=== PATIENT | female | born 1960 | race African-American/Black ===

== ENCOUNTER 2016-12-06 07:12 | Inpatient (IN) | payer MEDICARE, MEDICAID ==
[~2016-12-06] VITALS: Ht 163.8 cm; Wt 86.0 kg
[2016-12-06] VITALS (13 sets, daily range): BP systolic 150–261; BP diastolic 64–121; PULSE 70–84; RESP 16–35; TEMP 98.6–100; O2SAT 20–100
[~2016-12-06 07:12] MED LIST: CORT1SOL RIGHT EAR
[2016-12-06] MEDS ORDERED: QUET5TAB PO (07:38)
[2016-12-06] MEDS ORDERED: METO100T PO (07:38)
[2016-12-06] MEDS ORDERED: VERA120T3 PO (07:38)
[2016-12-06] MEDS ORDERED: ATOR40TA16 PO (07:38)
[2016-12-06] MEDS ORDERED: CITA20TA4 PO (07:38)
[2016-12-06] MEDS ORDERED: DONE5TAB7 PO (07:38)
[2016-12-06] MEDS ORDERED: CLON0.3T PO (07:38)
--- NOTE | 2016-12-06 07:39 | PD ---
HPI Chief Complaint: Respiratory Distress Time Seen by Provider: 07:27 Travel History International Travel<30 days: No Contact w/Intl Traveler<30days: No Traveled to known affect area: No History of Present Illness HPI 56-year-old female complains of chest pain and shortness of breath. Patient states that she woke up around 4:00 this morning was subsequently chest pressure and shortness of breath. Patient denies any chest pain radiation. Patient denies palpitation nausea diaphoresis. Patient states that the chest discomfort resolved completely. Patient states that she has some mild persistent short of breath . Patient denies any headache. Patient denies any coughing congestion. Patient denies abdominal pain. Patient denies any nausea vomiting diarrhea. Patient has history hypertension, diabetes, hyperlipidemia. Patient is a nonsmoker. Patient denies family history heart disease. Patient states that she had stress test done about a year ago at [facility] and it was normal. PFSH Past Medical History Autoimmune Disease: Yes (lupus) Anxiety: Yes Depression: Yes High Cholesterol: Yes Coronary Artery Disease: Yes Diabetes: Yes Patient Takes Glucophage: No Hypertension: Yes ?: Not Menopausal: Yes Past Surgical History Section: Yes Social History Alcohol Use: No Tobacco Use: No Substance Use: Yes (marijuana) Allergies-Medications (Allergen,Severity, Reaction): Coded Allergies: lorazepam (Unverified Allergy, Intermediate, 12/04/16) Reported Meds & Prescriptions Reported Meds & Active Scripts Active Reported Quetiapine (Quetiapine Fumarate) 50 Mg Tab 50 Mg PO HS Metoprolol Tartrate 100 Mg Tab 100 Mg PO BID Clonidine (Clonidine HCl) 0.3 Mg Tab 0.3 Mg PO TID Donepezil 5 Mg Tab 5 Mg PO HS Verapamil (Verapamil HCl) 120 Mg Tab 120 Mg PO BID Citalopram (Citalopram Hydrobromide) 20 Mg Tab 20 Mg PO DAILY Atorvastatin (Atorvastatin Calcium) 40 Mg Tab 40 Mg PO HS Review of Systems General / Constitutional: No: Fever Eyes: No: Visual changes HENT: No: Headaches Cardiovascular: Positive: Chest Pain or Discomfort Respiratory: Positive: Shortness of Breath Gastrointestinal: No: Abdominal Pain Genitourinary: No: Dysuria Musculoskeletal: No: Pain Skin: No Rash Neurologic: No: Weakness Psychiatric: No: Depression Endocrine: No: Polydipsia Hematologic/Lymphatic: No: Easy Bruising Physical Exam Narrative GENERAL: Well-nourished, well-developed patient. SKIN: Focused skin assessment warm/dry. HEAD: Normocephalic. EYES: No scleral icterus. No injection or drainage. NECK: Supple, trachea midline. No JVD or lymphadenopathy. CARDIOVASCULAR: Regular rate and rhythm without murmurs, gallops, or rubs. RESPIRATORY: Breath sounds equal bilaterally. No accessory muscle use. GASTROINTESTINAL: Abdomen soft, non-tender, nondistended. Rectal exam Hemoccult negative. Patient has external hemorrhoid but no evidence of bleeding or thrombosis. MUSCULOSKELETAL: No cyanosis, or edema. BACK: Nontender without obvious deformity. No CVA tenderness. Neurologic exam normal. Data Data Last Documented VS Vital Signs Date Time Temp Pulse Resp B/P Pulse Ox O2 Delivery O2 Flow Rate FiO2 12/06/16 07:39 96 Room Air 12/06/16 07:14 98.6 72 16 235/119 Orders Electrocardiogram (12/06/16 07:32) Complete Blood Count With Diff (12/06/16 07:32) Comprehensive Metabolic Panel (12/06/16 07:32) Creatine Kinase (Cpk) (12/06/16 07:32) Troponin I (12/06/16 07:32) Prothrombin Time / Inr (Pt) (12/06/16 07:32) Act Partial Throm Time (Ptt) (12/06/16 07:32) Urinalysis - C+S If Indicated (12/06/16 07:32) Chest, Single Ap (12/06/16 07:32) Iv Access Insert/Monitor (12/06/16 07:32) Ecg Monitoring (12/06/16 07:32) Oximetry (12/06/16 07:32) CKMB (12/06/16 07:44) CKMB% (12/06/16 07:44) Urine Culture (12/06/16 08:44) Hydralazine Inj (Apresoline Inj) (12/06/16 10:45) Admit To Inpatient (12/06/16 ) Vital Signs (Adult) JONO.Q4H (12/06/16 10:41) Activity Bed Rest (12/06/16 10:41) Cloud Security Architect / Telemetry JONO.Q8H (12/06/16 10:41) Diet Npo (12/06/16 Lunch) Sodium Chloride 0.9% Flush (Ns Flush) (12/06/16 10:45) Sodium Chloride 0.9% Flush (Ns Flush) (12/06/16 10:45) Inpatient Certification (12/06/16 ) Labs Laboratory Tests Test 12/06/16 12/06/16 07:44 08:44 White Blood Count 5.9 TH/MM3 Red Blood Count 2.73 MIL/MM3 Hemoglobin 7.5 GM/DL Hematocrit 22.9 % Mean Corpuscular Volume 84.0 FL Mean Corpuscular Hemoglobin 27.3 PG Mean Corpuscular Hemoglobin 32.5 % Concent Red Cell Distribution Width 15.3 % Platelet Count 225 TH/MM3 Mean Platelet Volume 8.0 FL Neutrophils (%) (Auto) 75.5 % Lymphocytes (%) (Auto) 17.0 % Monocytes (%) (Auto) 6.2 % Eosinophils (%) (Auto) 0.5 % Basophils (%) (Auto) 0.8 % Neutrophils # (Auto) 4.5 TH/MM3 Lymphocytes # (Auto) 1.0 TH/MM3 Monocytes # (Auto) 0.4 TH/MM3 Eosinophils # (Auto) 0.0 TH/MM3 Basophils # (Auto) 0.0 TH/MM3 CBC Comment DIFF FINAL Differential Comment Prothrombin Time 10.7 SEC Prothromb Time International 1.0 RATIO Ratio Activated Partial 23.1 SEC Thromboplast Time Sodium Level 143 MEQ/L Potassium Level 3.8 MEQ/L Chloride Level 111 MEQ/L Carbon Dioxide Level 24.0 MEQ/L Anion Gap 8 MEQ/L Blood Urea Nitrogen 42 MG/DL Creatinine 3.20 MG/DL Estimat Glomerular Filtration 18 ML/MIN Rate Random Glucose 64 MG/DL Calcium Level 8.6 MG/DL Total Bilirubin 0.2 MG/DL Aspartate Amino Transf 70 U/L (AST/SGOT) Alanine Aminotransferase 102 U/L (ALT/SGPT) Alkaline Phosphatase 178 U/L Total Creatine Kinase 417 U/L Creatine Kinase MB 3.4 NG/ML Creatine Kinase MB % 0.8 % Troponin I 0.03 NG/ML Total Protein 7.8 GM/DL Albumin 3.0 GM/DL Urine Color LIGHT-YELLOW Urine Turbidity HAZY Urine pH 6.5 Urine Specific [place] 1.012 Urine Protein 300 mg/dL Urine Glucose (UA) NEG mg/dL Urine Ketones NEG mg/dL Urine Occult Blood SMALL Urine Nitrite NEG Urine Bilirubin NEG Urine Urobilinogen LESS THAN 2.0 MG/DL Urine Leukocyte Esterase SMALL Urine RBC 3 /hpf Urine WBC 19 /hpf Urine Squamous Epithelial 16 /hpf Cells Urine Amorphous Sediment RARE Urine Bacteria OCC /hpf Microscopic Urinalysis Comment CULTURE INDICATED MDM Medical Decision Making Medical Screen Exam Complete: Yes Emergency Medical Condition: Yes Interpretation(s) Last Impressions Chest X-Ray 12/06/16 0732 Signed Impressions: Service Date/Time: November 07:41 - CONCLUSION: Moderate cardiomegaly. Clear lungs. Ritcihe Gold Jr., MD 9:48 AM. CBC WBC 5.9. Hemoglobin 7.5 hematocrit 22.9. 75 neutrophil. BUN 42. Creatinine 3.20. AST 78. ALT 102. Alkaline phosphatase 178. Total CK 417 with normal MB fraction. Troponin normal. UA positive for WBC and bacteria. Differential Diagnosis Differential diagnosis including angina, OR, PE, pneumothorax. Narrative Course 56-year-old female with chest pain and shortness of breath. Patient's blood pressures elevated. Normal saline solution 70 cc an hour. Protonix 40 mg IV. Hydralazine tendon gram IV given. HemaPrompt Point of Care Internal Pos. & Neg. Controls: Passed Fecal Specimen Occult Blood: Negative Diagnosis Primary Impression: Chest pain Qualified Code: R07.9 - Chest pain, unspecified type Additional Impressions: Anemia Qualified Code: D64.9 - Anemia, unspecified type Transaminitis Delon Tello MD Dec 06, 2016 07:39
--- NOTE | 2016-12-06 08:02 | RADRPT ---
EXAM DATE/TIME: 12/06/2016 07:41 [facility] COMPARISON: No previous studies available for comparison. INDICATIONS : Chest pain. MEDICAL HISTORY : Hypertension. SURGICAL HISTORY : None. ENCOUNTER: Initial ACUITY: 1 day PAIN SCORE: 4/10 LOCATION: middle chest FINDINGS: A single view of the chest demonstrates the lungs to be symmetrically aerated without evidence of mas s, infiltrate or effusion. The heart is moderately enlarged without pulmonary vascular engorgement. Osseous structures are intact. CONCLUSION: Moderate cardiomegaly. Clear lungs. Ritchie Gold Jr., MD on December 06, 2016 at 8:00 Board Certified Radiologist. This report was verified electronically.
[2016-12-06 08:04] LABS: AUTOMATED NEUTROPHIL # 4.5 TH/MM3 (1.8-7.7); BASOPHIL % 0.8 % (0.0-2.0); EOSINOPHIL % 0.5 % (0.0-4.0); HEMATOCRIT 22.9 % (35.0-46.0); HEMO FLAGS DIFF FINAL; MEAN CORPUSCULAR HEMOGLOBIN 27.3 PG (27.0-34.0); MEAN CORPUSCULAR HGB CONC 32.5 % (32.0-36.0); MONO % 6.2 % (0.0-8.0); NEUT % 75.5 % (16.0-70.0); PLATELET COUNT 225 TH/MM3 (150-450); RED BLOOD COUNT 2.73 MIL/MM3 (4.00-5.30); RED CELL DISTRIBUTION WIDTH 15.3 % (11.6-17.2); WHITE BLOOD COUNT 5.9 TH/MM3 (4.0-11.0)
[2016-12-06 08:16] LABS: APTT (PATIENT) 23.1 SEC (24.3-30.1); PROTHROMBIN TIME - PATIENT 10.7 SEC (9.8-11.6)
[2016-12-06 08:23] LABS: ALT (GPT) 102 U/L (10-53); ANION GAP 8 MEQ/L (5-15); BLOOD UREA NITROGEN 42 MG/DL (7-18); CHLORIDE 111 MEQ/L (98-107); POTASSIUM 3.8 MEQ/L (3.5-5.1); SODIUM (NA) 143 MEQ/L (136-145)
[2016-12-06 08:28] LABS: ALKALINE PHOSPHATASE 178 U/L (45-117); AST (GOT) 70 U/L (15-37); CREATINE KINASE 417 U/L (26-192); GLOMERULAR FILTRATION RATE 18 ML/MIN (>89); TOTAL BILIRUBIN ADULT 0.2 MG/DL (0.2-1.0)
[2016-12-06 08:41] LABS: CKMB 3.4 NG/ML (0.5-3.6)
[2016-12-06 09:25] LABS: BACTERIA, URINE OCC /hpf; BLOOD, URINE SMALL (NEG); COMMENT (UR) CULTURE INDICATED; CULTURE IF INDICATED CULTURE INDICATED; GLUCOSE,URINE NEG (NEG); KETONE, URINE NEG (NEG); NITRITE,URINE NEG (NEG); PH, URINE 6.5 (5.0-8.5); SQUAMOUS EPITHELIAL CELL URINE 16 /hpf (0-5); URINE COLOR LIGHT-YELLOW (YELLW/STRAW)
[2016-12-06] MEDS ORDERED: PANTOPRAZOLE SODIUM 40 MG VIAL IV PUSH ONE (10:45)
[2016-12-06] MEDS ORDERED: SODIUM CHLORIDE 0.9% FLUSH 10 ML FLUSH IV FLUSH PRN (10:45)
[2016-12-06] MEDS ORDERED: hydrALAZINE HCL 20 MG/ML VIAL IV PUSH ONE ×2 (10:45→11:30)
[2016-12-06] MEDS: SODIUM CHLORIDE 0.9% FLUSH 10 ML FLUSH IV FLUSH SCH ×2 (10:57→21:08)
[2016-12-06] MEDS: SODIUM CHLOR 0.9% 1000 ML INJ 1,000 ML IV SCH (10:57)
[2016-12-06] MEDS ORDERED: LABETALOL HCL 100 MG/20 ML VIAL IV PUSH ONE (12:00)
[2016-12-06] MEDS ORDERED: SODIUM CHLOR 0.9% 1000 ML INJ 1,000 ML IV ONE (12:30)
[2016-12-06] MEDS ORDERED: LORazepam 2 MG/ML VIAL IV PUSH PRN (12:30)
--- NOTE | 2016-12-06 12:34 | HHI.HP ---
[facility] ANISHA Hart Admission Diagnosis chest pain. Anemia. Acute renal failure. Uncontrolled hypertensio Diagnoses: Chief Complaint: " i couldn't breath" Travel History International Travel<30 Days: No Contact w/Intl Traveler <30 Da: No Traveled to Known Affected Are: No History of Present Illness 56-year-old black female being admitted for chest pressure and shortness of breath along with anemia and presumably acute renal insufficiency. Appears very nervous during the history intake, becomes tearful midway. Patient states she was in her usual state of health until about 4:00 this morning when she woke up gasping for air secondary to chest pressure. Denies any bozena chest pain, says that she was able to calm herself down by the time she was driving to the ER, says the pressure had eased up. Says that by the time she had to the ER, her chest pressure was minimal. Denies this happening in the past. Denies any worsening or alleviating factors, came straight to the ER after waking up. Patient denies any hematochezia or melena, no nausea or vomiting, or lightheadedness. Does report new onset fatigue since about 1 month ago. Denies any abdominal pain. Reports the possibility of hitting menses, denies vaginal bleeding or any hematuria. 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 Says that she did have a screening colonoscopy some time in the last year and was told she had some polyps with stated; but denies any acute issues leading to the colonoscopy. When asking about her past medical history, the patient again becomes very tearful and nervous. When asked why she is getting upset, she says she doesn't know what's going on with her. When asked which physicians she sees especially for her mood disorders, she is unable to name them reliably. Review of Systems Except as stated in HPI: all other systems reviewed are Neg Past Family Social History Past Medical History diabetes, HTN, "lupus trait" Past Surgical History , screening colonoscopy Allergies: Coded Allergies: lorazepam (Unverified Allergy, Intermediate, 12/04/16) Family History no fam hx of CRC, sister did have ovarian CA Social History lives with partner, reports using THC, denies smoking or drinking ever Physical Exam Vital Signs Vital Signs Date Time Temp Pulse Resp B/P Pulse Ox O2 Delivery O2 Flow Rate FiO2 12/06/16 12:28 84 20 240/117 100 12/06/16 11:04 74 20 261/121 98 Room Air 12/06/16 07:39 96 Room Air 12/06/16 07:14 98.6 72 16 235/119 98 Physical Exam VS: Reviewed, very hypertensive GENERAL: Well-nourished female, very nervous, at times tearful SKIN: Warm and dry. EYES: Pupils equal and round. No scleral icterus. No injection or drainage. ENT: No nasal bleeding or discharge. Mucous membranes pink and moist. CARDIOVASCULAR: Regular rate and rhythm. no murmurs RESPIRATORY: No accessory muscle use. Clear to auscultation. Breath sounds equal bilaterally. GASTROINTESTINAL: Abdomen soft, non-tender, nondistended. Hepatic and splenic margins not palpable. MUSCULOSKELETAL: Extremities without clubbing, cyanosis, or edema. No obvious deformities. grossly intact ROM with 5/5 strength in upper and lower extremities proximally. Substernal chest wall is nontender to palpation with the patient experienced pressure NEUROLOGICAL: Awake and alert. No obvious cranial nerve deficits. No facial droop nor slurred speech noted. PSYCHIATRIC: Appropriate mood and affect; insight and judgment normal. Laboratory Laboratory Tests Test 12/06/16 12/06/16 07:44 08:44 White Blood Count 5.9 Red Blood Count 2.73 Hemoglobin 7.5 Hematocrit 22.9 Mean Corpuscular Volume 84.0 Mean Corpuscular Hemoglobin 27.3 Mean Corpuscular Hemoglobin 32.5 Concent Red Cell Distribution Width 15.3 Platelet Count 225 Mean Platelet Volume 8.0 Neutrophils (%) (Auto) 75.5 Lymphocytes (%) (Auto) 17.0 Monocytes (%) (Auto) 6.2 Eosinophils (%) (Auto) 0.5 Basophils (%) (Auto) 0.8 Neutrophils # (Auto) 4.5 Lymphocytes # (Auto) 1.0 Monocytes # (Auto) 0.4 Eosinophils # (Auto) 0.0 Basophils # (Auto) 0.0 CBC Comment DIFF FINAL Differential Comment Prothrombin Time 10.7 Prothromb Time International 1.0 Ratio Activated Partial 23.1 Thromboplast Time Sodium Level 143 Potassium Level 3.8 Chloride Level 111 Carbon Dioxide Level 24.0 Anion Gap 8 Blood Urea Nitrogen 42 Creatinine 3.20 Estimat Glomerular Filtration 18 Rate Random Glucose 64 Calcium Level 8.6 Total Bilirubin 0.2 Aspartate Amino Transf 70 (AST/SGOT) Alanine Aminotransferase 102 (ALT/SGPT) Alkaline Phosphatase 178 Total Creatine Kinase 417 Creatine Kinase MB 3.4 Creatine Kinase MB % 0.8 Troponin I 0.03 Total Protein 7.8 Albumin 3.0 Urine Color LIGHT-YELLOW Urine Turbidity HAZY Urine pH 6.5 Urine Specific [place] 1.012 Urine Protein 300 Urine Glucose (UA) NEG Urine Ketones NEG Urine Occult Blood SMALL Urine Nitrite NEG Urine Bilirubin NEG Urine Urobilinogen LESS THAN 2.0 Urine Leukocyte Esterase SMALL Urine RBC 3 Urine WBC 19 Urine Squamous Epithelial 16 Cells Urine Amorphous Sediment RARE Urine Bacteria OCC Microscopic Urinalysis Comment CULTURE INDICATED Date/Time Procedure Status Source Growth 12/06/16 08:44 Urine Culture Received Urine Clean Catch Pending Result Diagram: 12/06/1644 12/06/16 0744 Imaging Last 24 hours Impressions Chest X-Ray 12/06/16 0732 Signed Impressions: Service Date/Time: November 07:41 - CONCLUSION: Moderate cardiomegaly. Clear lungs. Ritchie Gold Jr., MD Assessment and Plan Problem List: (1) Transaminitis ICD Code: R74.0 Status: Acute (2) Renal insufficiency ICD Code: N28.9 Status: Acute (3) Anemia ICD Code: D64.9 Status: Acute (4) Shortness of breath ICD Code: R06.02 Status: Acute Assessment and Plan 56-year-old black female being admitted with shortness of breath and multiple lab abnormalities, clinically stable w/ exception of severe HTN upon admission. Poor historian. 1) shortness of breath/chest pressure - improved over time, wonder if this is secondary to obstructive sleep apnea compounded with anxiety, low suspicion for ACS. EKG unremarkable, we'll trend troponins although they may be elevated due to substantially impaired renal function. We'll obtain echocardiogram and monitor on telemetry. 2) hypertensive emergency vs urgency - unsure if kidney damage is acute or chronic, will treat with IV antihypertensives including cardene drip. . 2) normocytic anemia - stool occult negative ENZO, will repeat, consider GI consult. Obtaining iron ferritin and reticulocyte levels. We'll transfuse 1 unit of blood to see if this helps with her chest pressure issues, trend daily levels. 3) transaminitis - unclear etiology at this time, we'll trend and consider GI consult. 4) renal insufficiency - will treat for possibility of acute insult on chronic issue, possibly due to "lupus" 5) "lupus trait" - will consider rheum consult. ordering outside records. 6) mood disorders - will hold home meds for now. will consider psych consult to help with med management since this pt at the age of 56 is apparently taking donepezil and she isn't sure whose writing which meds. Physician Certification 2 Midnight Certification Type: Admission for Inpatient Services Order for Inpatient Services The services are ordered in accordance with Medicare regulations or non- Medicare payer requirements, as applicable. In the case of services not specified as inpatient-only, they are appropriately provided as inpatient services in accordance with the 2-midnight benchmark. Estimated LOS (days): 3 3 days is the estimated time the patient will need to remain in the hospital, assuming treatment plan goals are met and no additional complications. Post-Hospital Plan: Home Problem Qualifiers (1) Anemia: Qualified Code: D64.9 - Anemia, unspecified type Rogerio Haro MD Dec 06, 2016 12:34
[2016-12-06] MEDS ORDERED: niCARdipine INJ 25 MG in SODIUM CHLOR 0.9% 250 ML INJ 250 ML IV ONE (13:00)
[2016-12-06 13:47] LABS: RETIC % 2.6 % (0.4-3.0); REVIEW FLAG FINAL
[2016-12-06] MEDS ORDERED: VERAPAMIL HCL 120 MG TAB PO SCH (14:00)
[2016-12-06 14:01] LABS: FERRITIN 291 NG/ML (8-252)
[2016-12-06] MEDS: cloNIDine HCL 0.3 MG TAB PO SCH ×2 (14:01→17:40)
[2016-12-06] MEDS: METOPROLOL TARTRATE 100 MG TAB PO SCH ×2 (14:01→21:07)
--- NOTE | 2016-12-06 14:24 | PD.CONS ---
HPI History of Present Illness This is a 56 year old female with hx HTN who presented with c/o chest pressure and SOB. She was found to be anemic with hgb 7.5, stool occult negative. Denies tarry stool, red blood in stool, hematemesis, abd pain, weight loss. SHe had colonoscopy a year and a half ago in [place] with Dr Maloney, finding was polyps. Never had EGD. She admits hx anemia, was here 1-2 years ago and told she was anemic and received blood transfusion. Is tender in RUQ on exam and says she has noticed pain there before, on her last admission. Denies hx liver problems. (Breanne Barboza) PFSH Past Medical History diabetes, HTN, "lupus trait Past Surgical History , screening colonoscopy (Breanne Barboza) Coded Allergies: lorazepam (Unverified Allergy, Intermediate, 12/04/16) Family History no fam hx of CRC, sister did have ovarian CA Social History lives with partner, reports using marijuana regularly, denies smoking or drinking ever (Breanne Barboza) Review of Systems Constitutional: DENIES: Fever Eyes: DENIES: Blurred vision Ears, nose, mouth, throat: DENIES: Hearing loss Respiratory: DENIES: Hemoptysis Gastrointestinal: DENIES: Abdominal pain, Black stools, Bloody stools, Diarrhea , Nausea, Vomiting, Hematemesis Genitourinary: DENIES: Hematuria Musculoskeletal: DENIES: Joint Swelling Neurologic: COMPLAINS OF: Abnormal gait (ambulates with cane) Psychiatric: COMPLAINS OF: Anxiety (Breanne Barboza) GI Exam Vitals I&O Vital Signs Date Time Temp Pulse Resp B/P Pulse Ox O2 Delivery O2 Flow Rate FiO2 12/06/16 13:12 231/107 12/06/16 12:28 84 20 240/117 100 12/06/16 11:04 74 20 261/121 98 Room Air 12/06/16 07:39 96 Room Air 12/06/16 07:14 98.6 72 16 235/119 98 Imaging Last Impressions Chest X-Ray 12/06/16 0732 Signed Impressions: Service Date/Time: November 07:41 - CONCLUSION: Moderate cardiomegaly. Clear lungs. Ritchie Gold Jr., MD Laboratory Test 12/06/16 12/06/16 07:44 08:44 White Blood Count 5.9 TH/MM3 Red Blood Count 2.73 MIL/MM3 Hemoglobin 7.5 GM/DL Hematocrit 22.9 % Mean Corpuscular Volume 84.0 FL Mean Corpuscular Hemoglobin 27.3 PG Mean Corpuscular Hemoglobin 32.5 % Concent Red Cell Distribution Width 15.3 % Platelet Count 225 TH/MM3 Mean Platelet Volume 8.0 FL Neutrophils (%) (Auto) 75.5 % Lymphocytes (%) (Auto) 17.0 % Monocytes (%) (Auto) 6.2 % Eosinophils (%) (Auto) 0.5 % Basophils (%) (Auto) 0.8 % Neutrophils # (Auto) 4.5 TH/MM3 Lymphocytes # (Auto) 1.0 TH/MM3 Monocytes # (Auto) 0.4 TH/MM3 Eosinophils # (Auto) 0.0 TH/MM3 Basophils # (Auto) 0.0 TH/MM3 CBC Comment DIFF FINAL Differential Comment Reticulocyte Count 2.6 % Absolute Reticulocyte Count 70.0 MIL/L Prothrombin Time 10.7 SEC Prothromb Time International 1.0 RATIO Ratio Activated Partial 23.1 SEC Thromboplast Time Sodium Level 143 MEQ/L Potassium Level 3.8 MEQ/L Chloride Level 111 MEQ/L Carbon Dioxide Level 24.0 MEQ/L Anion Gap 8 MEQ/L Blood Urea Nitrogen 42 MG/DL Creatinine 3.20 MG/DL Estimat Glomerular Filtration 18 ML/MIN Rate Random Glucose 64 MG/DL Calcium Level 8.6 MG/DL Iron Level 37 MCG/DL Ferritin 291 NG/ML Total Bilirubin 0.2 MG/DL Aspartate Amino Transf 70 U/L (AST/SGOT) Alanine Aminotransferase 102 U/L (ALT/SGPT) Alkaline Phosphatase 178 U/L Total Creatine Kinase 417 U/L Creatine Kinase MB 3.4 NG/ML Creatine Kinase MB % 0.8 % Troponin I 0.03 NG/ML Total Protein 7.8 GM/DL Albumin 3.0 GM/DL Urine Color LIGHT-YELLOW Urine Turbidity HAZY Urine pH 6.5 Urine Specific [place] 1.012 Urine Protein 300 mg/dL Urine Glucose (UA) NEG mg/dL Urine Ketones NEG mg/dL Urine Occult Blood SMALL Urine Nitrite NEG Urine Bilirubin NEG Urine Urobilinogen LESS THAN 2.0 MG/DL Urine Leukocyte Esterase SMALL Urine RBC 3 /hpf Urine WBC 19 /hpf Urine Squamous Epithelial 16 /hpf Cells Urine Amorphous Sediment RARE Urine Bacteria OCC /hpf Microscopic Urinalysis Comment CULTURE INDICATED Date/Time Procedure Status Source Growth 12/06/16 08:44 Urine Culture Received Urine Clean Catch Pending Physical Examination HEENT: PERRL, normocephalic; atraumatic; no jaundice. CHEST: CTA CARDIAC: RRR ABDOMEN: Soft, nondistended, RUQ TTP; no hepatosplenomegaly; bowel sounds are present in all four quadrants. EXTREMITIES: No clubbing, cyanosis, or edema. SKIN: Normal; no rash; no jaundice. FOREST RANGER TECHNICIAN: No focal deficits; alert and oriented times three. (Breanne Barboza) Assessment and Plan Plan ASSESSMENT - anemia - hgb 7.5 on admission. no obvious source bleeding, pt denies hematemesis, black tarry stool, blood in stool. - elev LFTs, RUQ TTP - denies hx liver problems or hepatitis. will do further w /u and get CT PLAN - EGD colonoscopy tomorrow so long as BP normalizes - obtain consents - GoLytely - clears today - NPO after midnight - CT abd/pelvis - monitor labwork - transfuse PRN - hep panel, iron studies, immunology labs - further recs to follow This pt seen by myself and Dr Medrano and this note is written on his behalf ( Breanne Barboza) Physician Comments Patient seen and examined Agree with above Continue with current supportive care Monitor labs Plan for an EGD and a colonoscopy tomorrow Plan for liver workup (Donovan Medrano MD) Breanne Barboza Dec 06, 2016 14:24 Donovan Medrano MD Dec 06, 2016 17:05
[2016-12-06] MEDS ORDERED: PEG (High)/E-LYTE SOLN 4000 ML BTL PO ONE (16:00)
[2016-12-06] MEDS: CITALOPRAM HYDROBROMIDE 20 MG TAB PO SCH (16:06)
[2016-12-06] MEDS: VERAPAMIL HCL 120 MG TAB PO SCH ×2 (16:07→21:08)
--- NOTE | 2016-12-06 16:35 | RADRPT ---
EXAM DATE/TIME: 12/06/2016 16:10 [facility] COMPARISON: No previous studies available for comparison. INDICATIONS : Abdomen pain in right upper quadrant. ORAL CONTRAST: No oral contrast ingested. RADIATION DOSE: 9.96 CTDIvol (mGy) MEDICAL HISTORY : Hypertension. Diabetes mellitus type 2. SURGICAL HISTORY : section. ENCOUNTER: Initial ACUITY: 7 - 11 months PAIN SCALE: 1/10 LOCATION: Right upper quadrant TECHNIQUE: Volumetric scanning of the abdomen and pelvis was performed. Using automated exposure control and ad justment of the mA and/or kV according to patient size, radiation dose was kept as low as reasonably achievable to obtain optimal diagnostic quality images. DICOM format image data is available electro nically for review and comparison. FINDINGS: LOWER LUNGS: There are small bilateral pleural effusions right greater than left. The heart size is prominent with small to moderate amount of pericardial fluid. LIVER: Homogeneous density without lesion. There is no dilation of the biliary tree. No calcified gallston es. SPLEEN: Normal size without lesion. PANCREAS: Within normal limits. KIDNEYS: Normal in size and shape. There is no mass, stone, or hydronephrosis. There are renal vascular calci fications. ADRENAL GLANDS: The adrenal glands are thickened bilaterally. There is a low attenuation 1.4 cm nodule on the right m easuring approximately 5 Hounsfield units in density. VASCULAR: Atherosclerotic changes with calcification no aneurysm. BOWEL/MESENTERY: There are multiple loops of non-dilated air containing small bowel with small air-fluid levels. Gas a nd stool is noted segmentally in the colon. There is no focal wall thickening or inflammatory change. There is no free intraperitoneal air or fluid. ABDOMINAL WALL: Within normal limits. RETROPERITONEUM: There is no lymphadenopathy. BLADDER: No wall thickening or mass. REPRODUCTIVE: A small benign appearing calcifications within the uterus which likely related to leiomyomata. INGUINAL: There is no lymphadenopathy or hernia. MUSCULOSKELETAL: Within normal limits for patient age. CONCLUSION: 1. Nonspecific, nonobstructive bowel gas pattern which may represent a mild ileus and or gastroenteri tis. 2. The adrenal glands are thickened bilaterally with a small adenoma on the right. 3. Small bilateral pleural effusions right greater than left. 4. Mild cardiomegaly with small to moderate amount of pericardial fluid. 5. Small benign-appearing calcifications in the uterus which are likely related to leiomyomata. Jose G Crook MD on December 06, 2016 at 16:29 Board Certified Radiologist. This report was verified electronically.
--- NOTE | 2016-12-06 16:45 | EKG ---
Date Performed: 12/06/2016 Time Performed: 07:41:51 PTAGE: 56 years EKG: Sinus rhythm LEFT VENTRICULAR HYPERTROPHY AND ST-T CHANGE ABNORMAL ECG NO PREVIOUS TRACING DOCTOR: Andre Waters Interpretating Date/Time 12/06/2016 16:43:39
[2016-12-06 17:54] LABS: CKMB 3.7 NG/ML (0.5-3.6)
[2016-12-06] MEDS: niCARdipine 25 MG/250 ML IVPB IV SCH ×2 (21:05)
[2016-12-06] MEDS: ATORVASTATIN 40 MG TAB PO SCH (21:07)
[2016-12-06] MEDS ORDERED: ALPRAZolam 0.25 MG TAB PO ONE (22:15)
[2016-12-06] MEDS ORDERED: CHLORHEXIDINE GLUCONATE 2 % 1 PACK (2 CLOTHS)(extra cloths) TOPICAL PRN (22:30)
[2016-12-07] VITALS (59 sets, daily range): BP systolic 121–163; BP diastolic 64–83; PULSE 53–87; RESP 21–38; TEMP 98.1–99.4; O2SAT 92–98
[2016-12-07] MEDS: niCARdipine 25 MG/250 ML IVPB IV SCH ×10 (00:52→16:48)
[2016-12-07] MEDS: SODIUM CHLOR 0.9% 1000 ML INJ 1,000 ML IV SCH ×2 (00:53→15:21)
[2016-12-07] MEDS: CHLORHEXIDINE GLUCONATE 2 % 1 PACK (2 CLOTHS)(taper/protocol) TOPICAL SCH (04:00)
[2016-12-07] MEDS: LABETALOL HCL 100 MG/20 ML VIAL IV PUSH PRN (05:00)
[2016-12-07] MEDS: VERAPAMIL HCL 120 MG TAB PO SCH ×2 (08:43→21:57)
[2016-12-07] MEDS: METOPROLOL TARTRATE 100 MG TAB PO SCH ×2 (08:43→21:57)
[2016-12-07] MEDS: SODIUM CHLORIDE 0.9% FLUSH 10 ML FLUSH IV FLUSH SCH ×2 (08:43→22:04)
[2016-12-07] MEDS: CITALOPRAM HYDROBROMIDE 20 MG TAB PO SCH (08:43)
[2016-12-07] MEDS: cloNIDine HCL 0.3 MG TAB PO SCH ×3 (08:43→17:58)
[2016-12-07] MEDS ORDERED: PROPOFOL 200 MG/20 ML AMP IV PUSH ONE (10:54)
[2016-12-07] MEDS ORDERED: DO NOT ADM ANY ANTICOAGULANT DRUGS PRN (10:55)
--- NOTE | 2016-12-07 11:07 | PD.PROCEDR ---
GI Procedure REFERRING PHYSICIAN GISEL FELIX PERFORMED EGD with biopsy followed by colonoscopy with snare polypectomy and biopsy INDICATION FOR PROCEDURE Anemia PROCEDURE: The procedure, risks and benefits were discussed with Ms. Recio and informed consent was obtained. Anesthesia sedated her with Diprivan. She was placed in the left lateral decubitus position. EGD: The Pentax videoscope was introduced through the oropharynx and advanced to the second portion of the duodenum under direct visualization. Retroflexion was performed in the stomach. FINDINGS: Esophagus this appeared to be unremarkable with normal limits Stomach there was evidence of small hiatal hernia and of heme in the stomach but no clear evidence of bleeding or cause of bleeding there was some patchy erythema in the gastric antrum and body and this was biopsied otherwise the stomach was unremarkable Duodenum there was patchy erythema with superficial erosions noted in the duodenal bulb and sweep this area was biopsied Colonoscopy: The Pentax videoscope was introduced through the rectum and advanced to cecum where the ileocecal valve and appendiceal orifice were identified. Retroflexion was performed in the rectum. Colonic prep was good FINDINGS: Colonic withdrawal time greater than 6 minutes as the scope was slowly withdrawn colonic mucosa was carefully inspected the patient was noted to have 1 small diminutive polyp in the descending colon this was excised using cold biopsy forceps there were 2 sessile polyps were excised using cold snare technique one in the proximal transverse and one in the rectum and both were completely excised and all polyps were sent for evaluation colonic examination was otherwise unremarkable retroflexion in the rectum did reveal moderate size internal hemorrhoids rectal examination otherwise unremarkable ESTIMATED BLOOD LOSS: None SPECIMENS REMOVED: Gastric, duodenum, colon COMPLICATIONS: None IMPRESSION: Small hiatal hernia Gastritis Duodenitis Colon polyps Internal hemorrhoids PLAN: Await biopsy Supportive care Monitor labs and transfuse as needed Small bowel follow-through Colonoscopy in 5 years Donovan Medrano MD Dec 07, 2016 11:07
--- NOTE | 2016-12-07 11:14 | PD.PSY.CON ---
Provisional Diagnosis Admission Date Dec 06, 2016 at 10:43 [employer]. Adjustment disorder with depressed mood, history of depression and anxiety [employer] II. Deferred History of Present Illness Service Psychiatry Consult Requested By Reason for Consult Depressive symptoms Primary Care Physician ANISHA Hart The patient is a 56-year-old woman, domiciled with her fianc, unemployed, on SSI, with psychiatric history of depression and anxiety, no previous psychiatric hospitalizations, no previous suicidal attempts, she has an established outpatient care in [facility], she is on citalopram 20 mg, quetiapine 50 mg twice a day, Aricept 5 mg daily, she has medical history hypertension and lupus traits. She was admitted due to chest pressure and shortness of breath along with anemia and presumably acute renal insufficiency. As per initial evaluation documentation Patient states she was in her usual state of health until about 4:00 this morning when she woke up gasping for air secondary to chest pressure. Denies any bozena chest pain, says that she was able to calm herself down by the time she was driving to the ER, says the pressure had eased up. Says that by the time she had to the ER, her chest pressure was minimal. Denies this happening in the past. Denies any worsening or alleviating factors , came straight to the ER after waking up. Patient denies any hematochezia or melena, no nausea or vomiting, or lightheadedness. Does report new onset fatigue since about 1 month ago. Denies any abdominal pain. Reports the possibility of hitting menses, denies vaginal bleeding or any hematuria. Says that she has "lupus trait" and used to see a crowning inspector but can't remember exactly where ([place] or [place]). Says that she did have a screening colonoscopy some time in the last year and was told she had some polyps with stated; but denies any acute issues leading to the colonoscopy. When asking about her past medical history, the patient again becomes very tearful and nervous. When asked why she is getting upset, she says she doesn't know what's going on with her. When asked which physicians she sees especially for her mood disorders, she is unable to name them reliably. She was finally consulted to psychiatry for medication management. On somatic evaluation today patient is calm, cooperative and pleasant. She is accompanied by Evin, she preferred that his present during psychiatric evaluation. Today patient reports good mood , she says that yesterday she was a little overwhelmed and frustrated, but better now. Patient denies mood symptoms, she denies anhedonia, she denies hopelessness, she denies helplessness, she denies decreased concentration and appetite she denies suicidal and homicidal ideation. She denies visual and auditory hallucinations. Patient reports good compliant with psychotropic medications, with good response and no significant side effects. She also reports via is with monthly outpatient follow-up in [facility]. During this evaluation, no paranoia, no delusions, no ideas of reference, no attention deficit, no fluctuation of consciousness, no gross cognitive impairment are present. Patient denies being diagnosed with dementia in the past. She reports daily use of marijuana, but no other illicit drugs or alcohol. Review of Systems Constitutional: DENIES: Diaphoretic episodes, Fatigue, Fever, Weight gain, Weight loss, Chills, Dizziness, Change in appetite, Night Sweats Endocrine: DENIES: Abnorml menstrual pattern, Heat/cold intolerance, Polydipsia , Polyuria, Polyphagia Eyes: DENIES: Blurred vision, Diplopia, Eye inflammation, Eye pain, Vision loss , Photosensitivity, Double Vision Ears, nose, mouth, throat: DENIES: Tinnitus, Hearing loss, Vertigo, Nasal discharge, Oral lesions, Throat pain, Hoarseness, Ear Pain, Running Nose, Epistaxis, Sinus Pain, Toothache, Odynophagia Respiratory: DENIES: Apneas, Cough, Snoring, Wheezing, Hemoptysis, Sputum production, Shortness of breath Cardiovascular: DENIES: Chest pain, Palpitations, Syncope, Dyspnea on Exertion , PND, Lower Extremity Edema, Orthopnea, Claudication Gastrointestinal: DENIES: Abdominal pain, Black stools, Bloody stools, Constipation, Diarrhea, Nausea, Vomiting, Difficulty Swallowing, Anorexia Musculoskeletal: DENIES: Joint pain, Muscle aches, Stiffness, Joint Swelling, Back pain, Neck pain Integumentary: DENIES: Abnormal pigmentation, Pruritus, Rash, Nail changes, Breast masses, Breast skin changes, Nipple discharge Immunologic/allergic: DENIES: Eczema, Urticaria Neurologic: DENIES: Abnormal gait, Headache, Localized weakness, Paresthesias, Seizures, Speech Problems, Tremor, Poor Balance Psychiatric: DENIES: Anxiety, Confusion, Mood changes, Depression, Hallucinations, Agitation, Suicidal Ideation, Homicidal Ideation, Delusions Past Family Social History Coded Allergies: lorazepam (Unverified Allergy, Intermediate, 12/04/16) Reported Medications Quetiapine 50 Mg Tab50 Mg PO HS #30 TAB Ref 0 12/06/16 Metoprolol Tartrate 100 Mg [id number] Mg PO BID #60 TAB Ref 0 12/06/16 Clonidine 0.3 Mg Tab0.3 Mg PO TID #60 TAB Ref 0 12/06/16 Donepezil 5 Mg Tab5 Mg PO HS #30 TAB Ref 0 12/06/16 Verapamil 120 Mg [id number] Mg PO BID #60 TAB Ref 0 12/06/16 Citalopram 20 Mg Tab20 Mg PO DAILY #30 TAB Ref 0 12/06/16 Atorvastatin 40 Mg Tab40 Mg PO HS #30 TAB Ref 0 12/06/16 Current Medications Medications (Trade) Dose Ordered Sig/Christopher Route Start Time Stop Time Status Last Admin (NS Flush) 2 ml UNSCH PRN IV FLUSH 12/06/16 10:45 Sodium Chloride 2 ml 2 ml BID IV FLUSH 12/06/16 10:45 12/06/16 21:08 (NS 1000 ml Inj) 1,000 ml @ 70 mls/hr [id number] IV 12/06/16 10:45 12/07/16 00:53 (Ativan Inj) 1 mg Q6H PRN IV PUSH 12/06/16 12:30 (Lipitor) 40 mg HS PO 12/06/16 21:00 12/06/16 21:07 (CeleXA) 20 mg DAILY PO 12/06/16 15:00 12/07/16 08:43 (Catapres) 0.3 mg TID PO 12/06/16 13:00 12/07/16 08:43 (Lopressor) 100 mg BID PO 12/06/16 14:00 12/07/16 08:43 (Trandate Inj) 10 mg Q4H PRN IV PUSH 12/06/16 13:00 12/07/16 05:00 Verapamil HCl 120 mg 120 mg BID PO 12/06/16 15:00 12/07/16 08:43 (Cardene Inj/NS 250 ml Inj) 250 ml @ 0 mls/hr TITRATE IV 12/06/16 20:00 12/07/16 08:44 Miscellaneous Information Patient in critical care unit? Ass... [id number] .[id number] 12/06/16 22:30 (Chlorhexidine 2% Cloth) 3 pack DAILY@04 TOPICAL 12/07/16 04:00 12/11/16 04:01 12/07/16 04:00 (Chlorhexidine 2% Cloth) 3 pack UNSCH PRN TOPICAL 12/06/16 22:30 12/11/16 22:21 Family History Patient has a sister with bipolar depression Social History Patient was born and raised in [place], she lives in [facility] with [facility], [place], she has 4 adult kids, she is unemployed, supported by [employer], highest level of education is GED Patient's Strengths (min. 2) Outpatient psychiatric services Physical Exam No tremors, no EPS, no psychomotor retardation or agitation Vital Signs Vital Signs Date Time Temp Pulse Resp B/P Pulse Ox O2 Delivery O2 Flow Rate FiO2 12/07/16 07:00 95 Room Air 12/07/16 06:00 85 12/07/16 04:00 98.9 24 163/83 I/O 12/06/16 12/06/16 12/06/16 07:59 15:59 23:59 Intake Total 1367 ml Balance 1367 ml Lab Results Laboratory Tests Test 12/06/16 12/06/16 07:44 08:44 White Blood Count 5.9 Red Blood Count 2.73 Hemoglobin 7.5 Hematocrit 22.9 Mean Corpuscular Volume 84.0 Mean Corpuscular Hemoglobin 27.3 Mean Corpuscular Hemoglobin 32.5 Concent Red Cell Distribution Width 15.3 Platelet Count 225 Mean Platelet Volume 8.0 Neutrophils (%) (Auto) 75.5 Lymphocytes (%) (Auto) 17.0 Monocytes (%) (Auto) 6.2 Eosinophils (%) (Auto) 0.5 Basophils (%) (Auto) 0.8 Neutrophils # (Auto) 4.5 Lymphocytes # (Auto) 1.0 Monocytes # (Auto) 0.4 Eosinophils # (Auto) 0.0 Basophils # (Auto) 0.0 CBC Comment DIFF FINAL Differential Comment Prothrombin Time 10.7 Prothromb Time International 1.0 Ratio Activated Partial 23.1 Thromboplast Time Sodium Level 143 Potassium Level 3.8 Chloride Level 111 Carbon Dioxide Level 24.0 Anion Gap 8 Blood Urea Nitrogen 42 Creatinine 3.20 Estimat Glomerular Filtration 18 Rate Random Glucose 64 Calcium Level 8.6 Total Bilirubin 0.2 Aspartate Amino Transf 70 (AST/SGOT) Alanine Aminotransferase 102 (ALT/SGPT) Alkaline Phosphatase 178 Total Creatine Kinase 417 Creatine Kinase MB 3.4 Creatine Kinase MB % 0.8 Troponin I 0.03 Total Protein 7.8 Albumin 3.0 Urine Color LIGHT-YELLOW Urine Turbidity HAZY Urine pH 6.5 Urine Specific [place] 1.012 Urine Protein 300 Urine Glucose (UA) NEG Urine Ketones NEG Urine Occult Blood SMALL Urine Nitrite NEG Urine Bilirubin NEG Urine Urobilinogen LESS THAN 2.0 Urine Leukocyte Esterase SMALL Urine RBC 3 Urine WBC 19 Urine Squamous Epithelial 16 Cells Urine Amorphous Sediment RARE Urine Bacteria OCC Microscopic Urinalysis Comment CULTURE INDICATED Date/Time Procedure Status Source Growth 12/06/16 08:44 Urine Culture Received Urine Clean Catch Pending Result Diagram: 12/06/16 0744 12/06/16 0744 Mental Status Examination Appearance woman, overweight, good hygiene, [facility], she is calm , cooperative and pleasant Speech: Unremarkable Orientation: x3 Memory: Unremarkable Thought Process: Logical Thought Content: Unremarkable Hallucination Type: None Suicidal Ideation: No Previous Suicide Attempts: No Homicidal Ideation: No Previous Homicide Attempts: No Insight: Good Affect: Good Mood: Appropriate Motor Activity: Normal gait Assessment & Plan Problem List: (1) Adjustment disorder with depressed mood Assessment & Plan: Patient was described to be tearful and sad yesterday, today she reports improved mood, denies depressive symptoms, denies anxiety, denies anhedonia, denies suicidal and homicidal ideation, denies visual and auditory hallucinations. Patient seems to be stable in current psychotropic regimen. However, I am a little concerned about her increased QTc interval, 481 ms. Hold psychotropics, especially Seroquel and citalopram, want to keep this is corrected and then restart. I did not see at clear indication for Aricept 5 mg. She does not meet criteria for psychiatric admission. Extensive psychoeducation provided. Consult appreciated. ICD Code: F43.21 Assessment & Plan Estimated LOS: Los Nguyen MD Dec 07, 2016 11:14
[2016-12-07] MEDS ORDERED: MAGNESIUM CITRATE SOLN 300 ML BTL PO ONE ×2 (12:00→18:00)
--- NOTE | 2016-12-07 15:21 | RADRPT ---
EXAM DATE/TIME: 12/07/2016 14:22 [place] COMPARISON: CT ABDOMEN & PELVIS W/O CONTRAST, December 06, 2016, 16:10. INDICATIONS : Anemia, attempted small bowel series. Patient vomiting. MEDICAL HISTORY : Hypertension. SURGICAL HISTORY : None. ENCOUNTER: Initial ACUITY: 1 day PAIN SCORE: Non-responsive. LOCATION: Bilateral abdomen FINDINGS: 2 AP supine views of the abdomen and pelvis were obtained and demonstrate gaseous distention in the a scending and transverse colon. There is no free air or or definite mass effect. There are multiple ca lcified phleboliths in the pelvis. Attempts were made to perform a small bowel follow-through. The maribell mora vomited the contrast and refused to proceed. CONCLUSION: Dilatation of portions of the colon which may represent an ileus. Inability to perfor m the mall bowel series. Jose G Crook MD on December 07, 2016 at 15:18 Board Certified Radiologist. This report was verified electronically.
[2016-12-07] MEDS: BISACODYL EC 5 MG TABEC PO SCH ×2 (17:43→21:00)
--- NOTE | 2016-12-07 18:39 | HHI.PR ---
Subjective Remarks Follow-up on chest pain, transaminitis, and kidney disease and hypertensive emergency, Patient says she feels much better today, denies any recurrence of the chest pressure that woke her up that night that led her to the emergency room. Denies any nausea vomiting Objective Vital Signs Date Time Temp Pulse Resp B/P Pulse Ox O2 Delivery O2 Flow Rate FiO2 12/07/16 18:00 77 12/07/16 17:00 74 12/07/16 16:45 72 26 159/79 96 12/07/16 16:30 72 28 160/76 95 12/07/16 16:15 71 26 154/75 95 12/07/16 16:00 70 12/07/16 16:00 98.2 70 26 148/75 96 12/07/16 15:45 70 26 147/75 95 12/07/16 15:30 70 27 159/80 95 12/07/16 15:15 71 30 153/76 97 12/07/16 15:00 70 30 154/75 95 12/07/16 15:00 70 12/07/16 14:45 72 26 154/80 98 12/07/16 14:30 73 38 155/76 97 12/07/16 14:15 68 35 153/73 96 12/07/16 14:13 67 31 159/74 94 12/07/16 13:45 65 30 149/73 96 12/07/16 13:30 63 30 147/72 93 12/07/16 13:15 62 34 145/71 94 12/07/16 13:01 63 12/07/16 13:01 63 31 154/72 94 12/07/16 12:45 58 31 140/73 94 12/07/16 12:30 57 29 138/70 94 12/07/16 12:15 55 26 142/73 92 12/07/16 12:00 98.1 54 29 138/70 94 12/07/16 12:00 54 12/07/16 11:45 56 25 131/64 96 12/07/16 11:45 56 12/07/16 11:32 56 29 135/65 96 12/07/16 11:20 58 23 130/67 95 Nasal Cannula 2 12/07/16 11:10 57 22 128/64 95 Nasal Cannula 2 12/07/16 11:00 97.7 59 25 133/72 99 Simple Mask 6 12/07/16 08:45 79 30 142/67 98 12/07/16 08:30 81 30 152/73 97 12/07/16 08:15 75 22 149/69 96 12/07/16 08:00 98.7 74 24 155/75 96 12/07/16 08:00 74 12/07/16 07:45 74 24 156/76 96 12/07/16 07:30 74 25 160/81 97 12/07/16 07:15 75 23 157/76 97 12/07/16 07:00 75 12/07/16 07:00 75 24 156/78 95 12/07/16 07:00 95 Room Air 12/07/16 06:45 75 24 158/79 95 12/07/16 06:30 78 28 157/76 95 12/07/16 06:15 85 30 150/68 95 12/07/16 06:00 85 12/07/16 06:00 85 33 156/74 96 12/07/16 04:00 98.9 74 24 163/83 94 12/07/16 04:00 75 12/07/16 02:55 93 12/07/16 02:00 87 12/07/16 00:00 99.4 61 30 145/71 98 12/07/16 00:00 61 12/06/16 22:06 96 12/06/16 22:00 70 12/06/16 21:14 99.8 81 35 150/64 95 12/06/16 20:53 100.0 79 27 155/69 94 12/06/16 20:00 79 12/06/16 20:00 99.8 79 34 175/85 95 12/06/16 19:00 93 Room Air I/O 12/06/16 12/06/16 12/06/16 12/07/16 12/07/16 12/07/16 07:00 15:00 23:00 07:00 15:00 23:00 Intake Total 1367 ml 1513 ml 200 ml 639 ml Output Total 0 ml Balance 1367 ml 1513 ml 200 ml 639 ml Intake Oral 300 ml IV Total 1067 ml 1213 ml 639 ml Packed Cells 300 ml Other 200 ml Output Estimated Blood Loss 0 ml # Voids 2 3 1 Result Diagram: 12/06/16 0744 12/06/1644 Imaging Last 24 hours Impressions Abdomen X-Ray 12/07/16 0000 Signed Impressions: Service Date/Time: Wednesday, December 07, 2016 14:22 - CONCLUSION: Dilatation of portions of the colon which may represent an ileus. Inability to perform the mall bowel series. Jose G Crook MD Objective Remarks GENERAL: Resting comfortably in bed, no acute distress CARDIOVASCULAR: Regular rate and rhythm without murmurs, gallops, or rubs. RESPIRATORY: Breath sounds equal, slightly coarse sounds bilaterally GASTROINTESTINAL: Abdomen soft, non-tender, nondistended. MUSCULOSKELETAL: No cyanosis, or edema. A/P Problem List: (1) Renal insufficiency ICD Code: N28.9 (2) Transaminitis ICD Code: R74.0 (3) Shortness of breath ICD Code: R06.02 (4) Chest pain ICD Code: R07.9 (5) Hypertension ICD Code: I10 (6) Anemia ICD Code: D64.9 Assessment and Plan 56-year-old black female being admitted with shortness of breath and multiple lab abnormalities, clinically stable w/ exception of severe HTN upon admission. Poor historian. 1) shortness of breath/chest pressure - resolved, troponins functionally negative, last pump is unremarkable given that the patient has substantially impaired kidney filtration. Suspect that this was due to transient sleep apnea- type event or a nightmare. Canceling cardiac echocardiogram since it has yet to be obtained and I do not suspect that the patient had any acute coronary syndrome or impaired cardiac function resulting in her acute presentation. Fluid status clinically seems to be stable. 2) hypertensive emergency vs urgency -given that the patient has chronic kidney disease, I suspect that she has chronically elevated blood pressures, therefore I will decrease the parameters of the nicardipine drip or discontinue the drip altogether and keep her on when necessary oral medications on top of her chronic home oral regimen. It was explained to the patient that her pressures will be very difficult to control regardless simply due to her kidney impairment. HTN Emergency therefore is ruled out since she is clinically asymptomatic and rather just severely hypertensive chronically. 3) normocytic anemia -EGD and colonoscopy not showing any acute signs or sources of bleeding, unable to tolerate small bowel follow-through due to taste. Transfuse with blood earlier this morning, we'll consider iron transfusion given it is borderline low normal. 4) transaminitis - appreciate GI consult, monitor, repeat 5) renal insufficiency - CK D possibly from uncontrolled hypertension , currently urinating will therefore not need dialysis, to follow with deployment engineer outpatient . 6) "lupus trait" - still awaiting outside records from Dr. Beaver. 7) mood disorders - appreciate psych recs for Qt concern, mood overall improved. To f/u with her psychiatrist as outpt. Anticipate discharge [place] if overall condition remained stable. Problem Qualifiers (1) Chest pain: Qualified Code: R07.9 - Chest pain, unspecified type (2) Anemia: Qualified Code: D64.9 - Anemia, unspecified type Rogerio Haro MD Dec 07, 2016 18:39
[2016-12-07 19:54] LABS: AUTOMATED NEUTROPHIL # 5.7 TH/MM3 (1.8-7.7); BASOPHIL % 0.4 % (0.0-2.0); EOSINOPHIL % 0.2 % (0.0-4.0); HEMATOCRIT 22.2 % (35.0-46.0); HEMO FLAGS DIFF FINAL; LYMPH % 13.7 % (9.0-44.0); MEAN CELL VOLUME 83.8 FL (80.0-100.0); MEAN CORPUSCULAR HEMOGLOBIN 27.9 PG (27.0-34.0); MEAN CORPUSCULAR HGB CONC 33.3 % (32.0-36.0); NEUT % 79.7 % (16.0-70.0); PLATELET COUNT 202 TH/MM3 (150-450); RED BLOOD COUNT 2.65 MIL/MM3 (4.00-5.30); RED CELL DISTRIBUTION WIDTH 15.6 % (11.6-17.2); WHITE BLOOD COUNT 7.2 TH/MM3 (4.0-11.0)
[2016-12-07 20:18] LABS: ANION GAP 11 MEQ/L (5-15); AST (GOT) 26 U/L (15-37); BICARBONATE 20.1 MEQ/L (21.0-32.0); BLOOD UREA NITROGEN 43 MG/DL (7-18); CHLORIDE 113 MEQ/L (98-107); GLOMERULAR FILTRATION RATE 17 ML/MIN (>89); POTASSIUM 3.2 MEQ/L (3.5-5.1); SODIUM (NA) 144 MEQ/L (136-145)
[2016-12-07 20:21] LABS: ALT (GPT) 62 U/L (10-53); TRANSFERRIN IRON PROFILE 144 MG/DL (200-360)
[2016-12-07 20:25] LABS: ALKALINE PHOSPHATASE 164 U/L (45-117); CALCIUM-PROTEIN CORRECTED 7.6 MG/DL (8.5-10.1); TOTAL BILIRUBIN ADULT 0.4 MG/DL (0.2-1.0)
[2016-12-07] MEDS ORDERED: DONEPEZIL HCL 5 MG TAB PO SCH (21:00)
[2016-12-07] MEDS ORDERED: QUETIAPINE 50 MG PO SCH (21:00)
[2016-12-07] MEDS ORDERED: IRON SUCROSE INJ 100 MG in SODIUM CHLORIDE 0.9% INJ 100 ML IV ONE (21:00)
[2016-12-07] MEDS: ATORVASTATIN 40 MG TAB PO SCH (21:57)
[2016-12-07] MEDS: hydrALAZINE HCL 50 MG TAB PO SCH ×2 (21:57→22:00)
[2016-12-07] MEDS: niCARdipine INJ 25 MG in SODIUM CHLOR 0.9% 250 ML INJ 240 ML IV SCH (21:57)
[2016-12-07] MEDS ORDERED: ALPRAZolam 0.25 MG TAB PO ONE (22:30)
[2016-12-08] VITALS (28 sets, daily range): BP systolic 127–187; BP diastolic 63–88; PULSE 53–79; RESP 18–34; TEMP 98.7–99.3; O2SAT 85–96
[2016-12-08] MEDS: niCARdipine INJ 25 MG in SODIUM CHLOR 0.9% 250 ML INJ 240 ML IV SCH ×2 (01:42→04:58)
[2016-12-08] MEDS: CHLORHEXIDINE GLUCONATE 2 % 1 PACK (2 CLOTHS)(taper/protocol) TOPICAL SCH (02:29)
[2016-12-08] MEDS ORDERED: TEMAZEPAM 7.5 MG CAP PO ONE (02:30)
[2016-12-08] MEDS: hydrALAZINE HCL 50 MG TAB PO SCH ×2 (04:58→13:31)
[2016-12-08 05:56] LABS: HEMATOCRIT 25.1 % (35.0-46.0); MEAN CELL VOLUME 86.1 FL (80.0-100.0); MEAN CORPUSCULAR HEMOGLOBIN 27.9 PG (27.0-34.0); MEAN CORPUSCULAR HGB CONC 32.4 % (32.0-36.0); PLATELET COUNT 233 TH/MM3 (150-450); RED BLOOD COUNT 2.92 MIL/MM3 (4.00-5.30); RED CELL DISTRIBUTION WIDTH 15.6 % (11.6-17.2); REVIEW FLAG FINAL; WHITE BLOOD COUNT 9.9 TH/MM3 (4.0-11.0)
[2016-12-08 06:10] LABS: ALT (GPT) 59 U/L (10-53); ANION GAP 13 MEQ/L (5-15); AST (GOT) 20 U/L (15-37); BICARBONATE 18.9 MEQ/L (21.0-32.0); BLOOD UREA NITROGEN 41 MG/DL (7-18); CHLORIDE 111 MEQ/L (98-107); GLOMERULAR FILTRATION RATE 15 ML/MIN (>89); POTASSIUM 3.2 MEQ/L (3.5-5.1); SODIUM (NA) 143 MEQ/L (136-145)
[2016-12-08 06:12] LABS: ALKALINE PHOSPHATASE 167 U/L (45-117); TOTAL BILIRUBIN ADULT 0.4 MG/DL (0.2-1.0)
--- NOTE | 2016-12-08 08:42 | HHI.GIFU ---
Subjective Remarks Resting in bed. Did not sleep much last night secondary to anxiety. No n/v. No abdominal pain. States she occasionally has bright red blood on tissue related to her hemorrhoids, but has not seen any other bleeding and did not have any of this overnight. (Karen Jacques) Objective Vitals I&O Vital Signs Date Time Temp Pulse Resp B/P Pulse Ox O2 Delivery O2 Flow Rate FiO2 12/08/16 06:00 76 12/08/16 05:15 73 28 163/81 94 12/08/16 05:00 74 25 159/75 94 12/08/16 04:45 71 25 162/75 94 12/08/16 04:30 71 34 187/85 95 12/08/16 04:15 72 25 173/82 92 12/08/16 04:00 67 12/08/16 04:00 99.3 67 25 142/64 86 12/08/16 03:45 67 30 146/65 85 12/08/16 03:30 66 29 142/63 92 12/08/16 03:15 64 29 144/65 92 12/08/16 03:00 63 29 153/67 94 12/08/16 02:45 61 29 145/68 94 12/08/16 02:30 60 28 171/81 95 12/08/16 02:15 62 30 159/73 94 12/08/16 02:00 56 12/08/16 02:00 56 30 133/65 92 12/08/16 01:45 55 28 135/65 94 12/08/16 01:30 53 25 133/63 96 12/08/16 01:15 55 25 142/75 94 12/08/16 01:00 55 28 143/74 96 12/08/16 00:45 57 28 141/72 96 12/08/16 00:30 57 26 140/71 96 12/08/16 00:15 56 26 151/72 95 12/08/16 00:00 98.9 53 26 127/72 94 12/08/16 00:00 53 12/07/16 23:45 54 26 127/71 95 12/07/16 23:30 53 21 121/68 94 12/07/16 23:15 57 26 132/69 94 12/07/16 23:00 60 26 138/72 94 8/18/17 22:45 66 25 136/71 95 8/18/17 22:30 70 26 136/64 96 8/18/17 22:15 74 29 152/73 96 8/18/17 22:00 75 8/18/17 22:00 75 29 157/72 96 8/18/17 21:47 77 31 160/75 95 8/18/17 21:15 77 27 141/67 95 8/18/17 21:00 76 26 143/70 94 8/18/17 20:45 77 26 142/67 95 8/18/17 20:30 76 26 142/69 94 8/18/17 20:15 76 26 146/70 95 8/18/17 20:00 96 Room Air 8/18/17 20:00 98.9 76 25 146/70 96 8/18/17 20:00 75 8/18/17 19:45 77 25 147/75 96 8/18/17 19:30 76 25 148/71 96 8/18/17 19:15 75 30 150/73 95 8/18/17 19:00 75 29 153/73 95 8/18/17 18:00 77 8/18/17 17:00 74 8/18/17 16:45 72 26 159/79 96 8/18/17 16:30 72 28 160/76 95 8/18/17 16:15 71 26 154/75 95 8/18/17 16:00 70 8/18/17 16:00 98.2 70 26 148/75 96 8/18/17 15:45 70 26 147/75 95 8/18/17 15:30 70 27 159/80 95 8/18/17 15:15 71 30 153/76 97 8/18/17 15:00 70 30 154/75 95 8/18/17 15:00 70 8/18/17 14:45 72 26 154/80 98 8/18/17 14:30 73 38 155/76 97 8/18/17 14:15 68 35 153/73 96 8/18/17 14:13 67 31 159/74 94 8/18/17 13:45 65 30 149/73 96 8/18/17 13:30 63 30 147/72 93 8/18/17 13:15 62 34 145/71 94 8/18/17 13:01 63 8/18/17 13:01 63 31 154/72 94 12/07/16 12:45 58 31 140/73 94 12/07/16 12:30 57 29 138/70 94 12/07/16 12:15 55 26 142/73 92 12/07/16 12:00 98.1 54 29 138/70 94 12/07/16 12:00 54 12/07/16 11:45 56 25 131/64 96 12/07/16 11:45 56 12/07/16 11:32 56 29 135/65 96 12/07/16 11:20 58 23 130/67 95 Nasal Cannula 2 12/07/16 11:10 57 22 128/64 95 Nasal Cannula 2 12/07/16 11:00 97.7 59 25 133/72 99 Simple Mask 6 12/07/16 08:45 79 30 142/67 98 I/O 12/07/16 12/07/16 12/07/16 12/08/16 12/08/16 12/08/16 07:00 15:00 23:00 07:00 15:00 23:00 Intake Total 1513 ml 200 ml 1466 ml 818 ml Output Total 0 ml Balance 1513 ml 200 ml 1466 ml 818 ml Intake Oral 480 ml 480 ml IV Total 1213 ml 986 ml 338 ml Packed Cells 300 ml Other 200 ml Output Estimated Blood Loss 0 ml # Voids 3 2 1 # Bowel Movements 1 1 Laboratory Laboratory Tests Test 12/07/16 12/08/16 19:15 05:00 White Blood Count 7.2 9.9 Red Blood Count 2.65 2.92 Hemoglobin 7.4 8.2 Hematocrit 22.2 25.1 Mean Corpuscular Volume 83.8 86.1 Mean Corpuscular Hemoglobin 27.9 27.9 Mean Corpuscular Hemoglobin 33.3 32.4 Concent Red Cell Distribution Width 15.6 15.6 Platelet Count 202 233 Mean Platelet Volume 7.9 8.0 Neutrophils (%) (Auto) 79.7 Lymphocytes (%) (Auto) 13.7 Monocytes (%) (Auto) 6.0 Eosinophils (%) (Auto) 0.2 Basophils (%) (Auto) 0.4 Neutrophils # (Auto) 5.7 Lymphocytes # (Auto) 1.0 Monocytes # (Auto) 0.4 Eosinophils # (Auto) 0.0 Basophils # (Auto) 0.0 CBC Comment DIFF FINAL Differential Comment Sodium Level 144 143 Potassium Level 3.2 3.2 Chloride Level 113 111 Carbon Dioxide Level 20.1 18.9 Anion Gap 11 13 Blood Urea Nitrogen 43 41 Creatinine 3.47 3.71 Estimat Glomerular Filtration 17 15 Rate Random Glucose 246 193 Calcium Level 7.4 8.1 Protein Corrected Calcium 7.6 Iron Level 27 Total Iron Binding Capacity 202 Percent Iron Saturation 13.4 Total Bilirubin 0.4 0.4 Aspartate Amino Transf 26 20 (AST/SGOT) Alanine Aminotransferase 62 59 (ALT/SGPT) Alkaline Phosphatase 164 167 Total Protein 6.7 7.2 Albumin 2.7 2.7 Date/Time Procedure Status Source Growth 12/06/16 08:44 Urine Culture - Final Complete Urine Clean Catch 50-100,000 CFU/ML MIXED GRAM POSITIVE... Imaging Last Impressions Abdomen X-Ray 12/07/16 0000 Signed Impressions: Service Date/Time: Wednesday, December 07, 2016 14:22 - CONCLUSION: Dilatation of portions of the colon which may represent an ileus. Inability to perform the mall bowel series. Jose G Crook MD Chest X-Ray 12/06/16 0732 Signed Impressions: Service Date/Time: November 07:41 - CONCLUSION: Moderate cardiomegaly. Clear lungs. Ritchie Gold Jr., MD Abdomen/Pelvis CT 12/06/16 0000 Signed Impressions: Service Date/Time: November 16:10 - CONCLUSION: 1. Nonspecific, nonobstructive bowel gas pattern which may represent a mild ileus and or gastroenteritis. 2. The adrenal glands are thickened bilaterally with a small adenoma on the right. 3. Small bilateral pleural effusions right greater than left. 4. Mild cardiomegaly with small to moderate amount of pericardial fluid. 5. Small benign-appearing calcifications in the uterus which are likely related to leiomyomata. Jose G Crook MD Physical Exam HEENT: Normocephalic; atraumatic; no jaundice. CHEST: CTA CARDIAC: RRR, on cardene gtt ABDOMEN: Soft, nondistended, nontender; no hepatosplenomegaly; bowel sounds are present in all four quadrants. EXTREMITIES: No clubbing, cyanosis, or edema. SKIN: Normal; no rash; no jaundice. MAIL TELLER: No focal deficits; alert and oriented times three. (Karen Jacques) Assessment and Plan Plan ASSESSMENT - Anemia. Abdomen/Pelvis CT (12/06/16)-----> 1. Nonspecific, nonobstructive bowel gas pattern which may represent a mild ileus and or gastroenteritis. 2. The adrenal glands are thickened bilaterally with a small adenoma on the right. 3. Small bilateral pleural effusions right greater than left. 4. Mild cardiomegaly with small to moderate amount of pericardial fluid. 5. Small benign-appearing calcifications in the uterus which are likely related to leiomyomata. S/P EGD/Colonoscopy (12/07/16)----> small hiatal hernia, gastritis, duodenitis, colon polyps, internal hemorrhoids. SBFT was ordered, but patient did not tolerate the contrast and therefore KUB was done- dilated portions of the colon which may represent an ileus - Mild Ileus. Abdomen X-Ray (12/07/16)----> Dilatation of portions of the colon which may represent an ileus. Inability to perform the mall bowel series. Clinically, abdomen soft, nontender. (+) BM. - Elevated LFTs. CT as above. Hepatitis profile pending. AMA pending. ASMA pending. CHARLOTTE pending. Alpha 1 antitrypsin pending. Ceruloplasmin pending. Iron Saturation 13.4%. Ferritin 291. AFP pending. - HTN emergency. On Cardene gtt. B/P 163/81. Per attending. - SOB/CP, resolved. Per attending. PLAN - Full liquids, if tolerates, advance to heart healthy - AFP level - Await hepatitis profile - Await CHARLOTTE, ASMA, AMA - Await Ceruloplasmin, Ferritin - CBC, LFTs in am - Supportive care - Further recommendations to follow based on results of above - Pt seen and examined by Dr. Mckoy and myself and this note is written on his behalf (Karen Jacques) Physician Comments Agree with above, plan discussed with the patient, will follow up with you. ( Marlo Mckoy MD) Karen Jacques Dec 08, 2016 08:42 Marlo Mckoy MD Dec 08, 2016 10:53
[2016-12-08] MEDS: CITALOPRAM HYDROBROMIDE 20 MG TAB PO SCH (09:05)
[2016-12-08] MEDS: VERAPAMIL HCL 120 MG TAB PO SCH (09:05)
[2016-12-08] MEDS: cloNIDine HCL 0.3 MG TAB PO SCH ×2 (09:05→12:14)
[2016-12-08] MEDS: METOPROLOL TARTRATE 100 MG TAB PO SCH (09:05)
[2016-12-08] MEDS: SODIUM CHLORIDE 0.9% FLUSH 10 ML FLUSH IV FLUSH SCH (09:06)
[2016-12-08] MEDS ORDERED: niCARdipine INJ 25 MG in SODIUM CHLOR 0.9% 250 ML INJ 240 ML IV SCH (09:45)
[2016-12-08] MEDS ORDERED: ALPRAZolam 1 MG TAB PO ONE (10:30)
[2016-12-08] MEDS ORDERED: METOPROLOL TARTRATE 50 MG TAB PO ONE (10:30)
[2016-12-08] MEDS: LABETALOL HCL 100 MG/20 ML VIAL IV PUSH PRN (14:10)
--- NOTE | 2016-12-08 14:26 | HHI.DCPOC ---
Discharge Care Plan Your Health Problems Are: Anxiety Shortness of Breath Goals to Promote Your Health * To prevent worsening of your condition and complications * To maintain your health at the optimal level Directions to Meet Your Goals Take your medications as prescribed Follow your dietary instruction Follow activity as directed Keep your appointments as scheduled Take your immunizations and boosters as scheduled If your symptoms worsen call your PCP, if no PCP go to Urgent Care Center or Emergency Room Smoking is Dangerous to Your Health. Avoid second hand smoke Call the 24-hour hour crisis hotline for domestic abuse at Rogerio Haro MD Dec 08, 2016 14:26
--- NOTE | 2016-12-08 14:33 | HHI.DS ---
Discharge Summary Admission Date Dec 06, 2016 at 10:43 Discharge Date: Dec 08, 2016 Admitting Diagnosis chest pain. Anemia. Acute renal failure. Uncontrolled hypertensio (1) Transaminitis ICD Code: R74.0 Diagnosis: Secondary (2) Renal insufficiency ICD Code: N28.9 Diagnosis: Secondary (3) Anemia ICD Code: D64.9 Diagnosis: Secondary (4) Shortness of breath ICD Code: R06.02 Diagnosis: Principal Procedures EGD and colonoscopy. Unable to complete SB follow through. Brief History - From Admission 56-year-old black female being admitted for chest pressure and shortness of breath along with anemia and presumably acute renal insufficiency. Appears very nervous during the history intake, becomes tearful midway. Patient states she was in her usual state of health until about 4:00 this morning when she woke up gasping for air secondary to chest pressure. Denies any bozena chest pain, says that she was able to calm herself down by the time she was driving to the ER, says the pressure had eased up. Says that by the time she had to the ER, her chest pressure was minimal. Denies this happening in the past. Denies any worsening or alleviating factors, came straight to the ER after waking up. Patient denies any hematochezia or melena, no nausea or vomiting, or lightheadedness. Does report new onset fatigue since about 1 month ago. Denies any abdominal pain. Reports the possibility of hitting menses, denies vaginal bleeding or any hematuria. 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 Says that she did have a screening colonoscopy some time in the last year and was told she had some polyps with stated; but denies any acute issues leading to the colonoscopy. When asking about her past medical history, the patient again becomes very tearful and nervous. When asked why she is getting upset, she says she doesn't know what's going on with her. When asked which physicians she sees especially for her mood disorders, she is unable to name them reliably. CBC/BMP: 12/08/16 0500 12/08/16 0500 Significant Findings Laboratory Tests Test 12/06/16 12/06/16 12/06/16 12/06/16 07:44 08:44 15:17 19:58 Red Blood Count 2.73 MIL/MM3 (4.00-5.30) Hemoglobin 7.5 GM/DL (11.6-15.3) Hematocrit 22.9 % (35.0-46.0) Neutrophils (%) (Auto) 75.5 % (16.0-70.0) Activated Partial 23.1 SEC Thromboplast Time (24.3-30.1) Chloride Level 111 MEQ/L (98-107) Blood Urea Nitrogen 42 MG/DL (7-18) Creatinine 3.20 MG/DL (0.50-1.00) Estimat Glomerular Filtration 18 ML/MIN (>89) Rate Random Glucose 64 MG/DL (74-106) Iron Level 37 MCG/DL (50-170) Ferritin 291 NG/ML (8-252) Aspartate Amino Transf 70 U/L (15-37) (AST/SGOT) Alanine Aminotransferase 102 U/L (10-53) (ALT/SGPT) Alkaline Phosphatase 178 U/L (45-117) Total Creatine Kinase 417 U/L 597 U/L (26-192) (26-192) Albumin 3.0 GM/DL (3.4-5.0) Urine Turbidity HAZY (CLEAR) Urine Protein 300 mg/dL (NEG-TRACE) Urine Occult Blood SMALL (NEG) Urine Leukocyte Esterase SMALL (NEG) Urine WBC 19 /hpf (0-5) Urine Bacteria OCC /hpf (NONE) Creatine Kinase MB 3.7 NG/ML (0.5-3.6) Troponin I 0.06 NG/ML (0.02-0.05) Test 12/07/16 12/08/16 19:15 05:00 Red Blood Count 2.65 MIL/MM3 2.92 MIL/MM3 (4.00-5.30) (4.00-5.30) Hemoglobin 7.4 GM/DL 8.2 GM/DL (11.6-15.3) (11.6-15.3) Hematocrit 22.2 % 25.1 % (35.0-46.0) (35.0-46.0) Neutrophils (%) (Auto) 79.7 % (16.0-70.0) Potassium Level 3.2 MEQ/L 3.2 MEQ/L (3.5-5.1) (3.5-5.1) Chloride Level 113 MEQ/L 111 MEQ/L (98-107) (98-107) Carbon Dioxide Level 20.1 MEQ/L 18.9 MEQ/L (21.0-32.0) (21.0-32.0) Blood Urea Nitrogen 43 MG/DL (7-18) 41 MG/DL (7-18) Creatinine 3.47 MG/DL 3.71 MG/DL (0.50-1.00) (0.50-1.00) Estimat Glomerular Filtration 17 ML/MIN (>89) 15 ML/MIN (>89) Rate Random Glucose 246 MG/DL 193 MG/DL (74-106) (74-106) Calcium Level 7.4 MG/DL 8.1 MG/DL (8.5-10.1) (8.5-10.1) Protein Corrected Calcium 7.6 MG/DL (8.5-10.1) Iron Level 27 MCG/DL (50-170) Total Iron Binding Capacity 202 MCG/DL (250-450) Percent Iron Saturation 13.4 % (20-50) Alanine Aminotransferase 62 U/L (10-53) 59 U/L (10-53) (ALT/SGPT) Alkaline Phosphatase 164 U/L 167 U/L (45-117) (45-117) Albumin 2.7 GM/DL 2.7 GM/DL (3.4-5.0) (3.4-5.0) Imaging Last Impressions Abdomen X-Ray 12/07/16 0000 Signed Impressions: Service Date/Time: Wednesday, December 07, 2016 14:22 - CONCLUSION: Dilatation of portions of the colon which may represent an ileus. Inability to perform the mall bowel series. Jose G Crook MD Chest X-Ray 12/06/16 0732 Signed Impressions: Service Date/Time: November 07:41 - CONCLUSION: Moderate cardiomegaly. Clear lungs. Ritchie Gold Jr., MD Abdomen/Pelvis CT 12/06/16 0000 Signed Impressions: Service Date/Time: November 16:10 - CONCLUSION: 1. Nonspecific, nonobstructive bowel gas pattern which may represent a mild ileus and or gastroenteritis. 2. The adrenal glands are thickened bilaterally with a small adenoma on the right. 3. Small bilateral pleural effusions right greater than left. 4. Mild cardiomegaly with small to moderate amount of pericardial fluid. 5. Small benign-appearing calcifications in the uterus which are likely related to leiomyomata. Jose G Crook MD PE at Discharge GENERAL: Lying in bed comfortably, awake CARDIOVASCULAR: Regular rate and rhythm without murmurs, gallops, or rubs. RESPIRATORY: Breath sounds equal and clear bilaterally. Unlabored breathing GASTROINTESTINAL: Abdomen soft, non-tender, nondistended. Hospital Course Patient was admitted to the intensive care unit for presumed hypertensive emergency, initially treated with Cardene drip for hypertensive emergency with presumed acute end organ damage of the kidneys. 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 The patient's chest pain and shortness of breath had resolved before being admitted to the floor and did not recur for the remainder of the hospital stay, her troponins were unremarkable. The patient had a transfusion of young unit of blood, gastroenterology performed EGD and colonoscopy which showed no acute sources of bleeding, there were some hemorrhoids noted along with some dried heme in the stomach. A cause of the patient's transaminitis was not found during this stay ; her LFTs remained at a stable elevated level. Patient was tolerating by mouth intake well and denied having any abdominal pain she did have some intermittent moments of anxiety warranting benzo administration psychiatry was consulted and recommended cautious administration of her antipsychotics given her QTc interval. Patient has GI labs pending that can be followed up outpatient, is clear for discharge from GI standpoint. Patient is tolerating by mouth intake. Patient was also instructed to follow-up with her primary care provider regarding evaluation for obstructive sleep apnea as this likely played the biggest role in her presentation to the emergency room at the beginning of this hospitalization. Patient was informed that she was at increased risk of heart attacks and strokes given her severely elevated blood pressures despite aggressive medical therapy. Patient has met maximum benefit from hospitalization and is clinically stable for discharge. Pt Condition on Discharge: Stable Discharge Disposition: Discharge Home Discharge Time: > 30 minutes Discharge Instructions DIET: Follow Instructions for: As Tolerated, No Restrictions Rogerio Haro MD Dec 08, 2016 14:33
[2016-12-08] MEDS ORDERED: TERA5CAP3 PO (14:40)
[2016-12-08] MEDS ORDERED: HYDR-3800 PO (14:40)
[2016-12-08] MEDS ORDERED: METO-338 PO (14:40)
[2016-12-08] MEDS ORDERED: METOPROLOL TARTRATE 100 MG TAB PO SCH (21:00)
[2016-12-10 12:21] LABS: ANA SCREEN POS (NEG)
[2016-12-16 03:51] LABS: MITOCHONDRIAL ABS LESS THAN 20.0 U (<=20.0)
== END 2016-12-08 15:45 | disposition home or self-care (01) | DRG 812 ==
LOC: NEPE 07:12 → NEDA 10:43 → HIME 16:20
PROVIDERS: ADMIT Hospitalist; ATTEND Hospitalist
PROC: 30233N1 Transfusion of Nonautologous Red Blood Cells into Peripheral Vein, Percutaneous Approach (ICD-10-PCS; principal; 2016-12-06)
PROC: 0DBL8ZX Excision of Transverse Colon, Via Natural or Artificial Opening Endoscopic, Diagnostic (ICD-10-PCS; 2016-12-07)
PROC: 0DBP8ZX Excision of Rectum, Via Natural or Artificial Opening Endoscopic, Diagnostic (ICD-10-PCS; 2016-12-07)
PROC: 0DB98ZX Excision of Duodenum, Via Natural or Artificial Opening Endoscopic, Diagnostic (ICD-10-PCS; 2016-12-07)
PROC: 0DB68ZX Excision of Stomach, Via Natural or Artificial Opening Endoscopic, Diagnostic (ICD-10-PCS; 2016-12-07)
PROC: 0DBM8ZX Excision of Descending Colon, Via Natural or Artificial Opening Endoscopic, Diagnostic (ICD-10-PCS; 2016-12-07 10:05)
DX: D64.9 Anemia, unspecified (principal); E11.22 Type 2 diabetes mellitus with diabetic chronic kidney disease; E11.40 Type 2 diabetes mellitus with diabetic neuropathy, unspecified; K56.7 Ileus, unspecified; E78.5 Hyperlipidemia, unspecified; F32.9 Major depressive disorder, single episode, unspecified; F41.9 Anxiety disorder, unspecified; I25.10 Atherosclerotic heart disease of native coronary artery without angina pectoris; I16.0 Hypertensive urgency; K44.9 Diaphragmatic hernia without obstruction or gangrene; K29.70 Gastritis, unspecified, without bleeding; K29.80 Duodenitis without bleeding; K64.8 Other hemorrhoids; K63.5 Polyp of colon; K62.1 Rectal polyp; I12.9 Hypertensive chronic kidney disease with stage 1 through stage 4 chronic kidney disease, or unspecified chronic kidney disease; N18.9 Chronic kidney disease, unspecified
CPT/HCPCS: 36430; 71010; 74000; 74176; 76937; 80053; 80074; 81001; 82103; 82390; 82550; 82552; 82728; 83520; 83540; 83550; 84484; 85025; 85027; 85044; 85610; 85730; 86038; 86039; 86255; 86850; 86900; 86901; 86920; 87086; 87641; 88305; 88312; 93005; 99285; C9113; J0360; J1756; J3410; J7030; J7050; P9016

== ENCOUNTER 2017-01-27 16:32 | Inpatient (IN) | payer OTHER, MEDICARE, MEDICAID ==
[~2017-01-27] VITALS: Ht 162.6 cm; Wt 81.0 kg
[~2017-01-27 16:32] MED LIST changes: +ATOR40TA16 PO; +CITA20TA4 PO; +CLON0.3T PO; -CORT1SOL RIGHT EAR; +DONE5TAB7 PO; +HYDR-3800 PO; +METO-338 PO; +QUET5TAB PO; +TERA5CAP3 PO; +VERA120T3 PO
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
--- NOTE | 2017-01-27 17:43 | RADRPT ---
EXAM DATE/TIME: 01/27/2017 17:27 [facility] COMPARISON: No previous studies available for comparison. INDICATIONS : Right flank lower back pain. MEDICAL HISTORY : Hypertension. SURGICAL HISTORY : None. ENCOUNTER: Initial ACUITY: 1 day PAIN SCORE: 0/10 LOCATION: Right Hip FINDINGS: Examination of the right hip was performed with AP Pelvis. The primary and secondary trabecular juju haresh of the femoral neck is intact. The hip joint is of normal width without significant sclerosis or bony hypertrophy. The acetabulum is grossly intact. CONCLUSION: No acute disease. Luis F Bell MD on January 27, 2017 at 17:42 Board Certified Radiologist. This report was verified electronically.
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
[2017-01-27] MEDS ORDERED: MORPHINE SULFATE 4 MG/ML INJ IV PUSH ONE ×2 (17:45→20:15)
[2017-01-27] MEDS ORDERED: ONDANSETRON HCL 4 MG/2 ML VIAL IV PUSH ONE (17:45)
[2017-01-27 17:59] VITALS: BP 170/79; PULSE 87; RESP 24; TEMP 98.1; O2SAT 97
[2017-01-27 18:24] LABS: AUTOMATED NEUTROPHIL # 7.4 TH/MM3 (1.8-7.7); BASOPHIL % 0.3 % (0.0-2.0); EOSINOPHIL % 0.5 % (0.0-4.0); HEMATOCRIT 22.1 % (35.0-46.0); HEMO FLAGS DIFF FINAL; LYMPH % 6.8 % (9.0-44.0); LYMPHOCYTE # 0.6 TH/MM3 (1.0-4.8); MEAN CELL VOLUME 83.8 FL (80.0-100.0); MEAN CORPUSCULAR HEMOGLOBIN 29.1 PG (27.0-34.0); MEAN CORPUSCULAR HGB CONC 34.7 % (32.0-36.0); MONO % 4.3 % (0.0-8.0); NEUT % 88.1 % (16.0-70.0); PLATELET COUNT 150 TH/MM3 (150-450); RED BLOOD COUNT 2.64 MIL/MM3 (4.00-5.30); RED CELL DISTRIBUTION WIDTH 14.6 % (11.6-17.2); WHITE BLOOD COUNT 8.4 TH/MM3 (4.0-11.0)
[2017-01-27] MEDS ORDERED: HUMALOG SQ (18:30)
[2017-01-27] MEDS ORDERED: LEVEMIR SQ (18:30)
[2017-01-27 18:53] LABS: APTT (PATIENT) 22.6 SEC (24.3-30.1); PROTHROMBIN TIME - PATIENT 10.5 SEC (9.8-11.6)
[2017-01-27 19:08] LABS: BICARBONATE 21.1 MEQ/L (21.0-32.0); MAGNESIUM 1.9 MG/DL (1.5-2.5); POTASSIUM 3.9 MEQ/L (3.5-5.1)
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
[2017-01-27 20:00] VITALS: BP 168/77; PULSE 89; RESP 16; TEMP 98.7; O2SAT 96
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
[2017-01-27] MEDS ORDERED: HYDROmorphone HCL PF 1 MG/ML VIAL IVP PRN (20:30)
[2017-01-27] MEDS ORDERED: CHLORHEXIDINE GLUCONATE 2 % 1 PACK (2 CLOTHS) TOP PRN (20:30)
[2017-01-27] MEDS ORDERED: MISCELLANEOUS NURSING INFORMATION XX SCH (20:30)
[2017-01-27] MEDS ORDERED: ONDANSETRON HCL 4 MG/2 ML VIAL IV PUSH PRN (20:30)
[2017-01-27] MEDS: DOCUSATE SODIUM 100 MG CAP PO SCH (20:59)
[2017-01-27] MEDS: LACTATED RINGER'S 1000 ML INJ 1,000 ML IV SCH (20:59)
[2017-01-27] MEDS: HYDROmorphone HCL PF 1 MG/ML VIAL IVP PRN (22:41)
[2017-01-28] VITALS: BP 159/77; PULSE 89; RESP 16; TEMP 97.9; O2SAT 92
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
[2017-01-28] MEDS ORDERED: CHLORHEXIDINE GLUCONATE 2 % 1 PACK (2 CLOTHS) TOP SCH (04:00)
[2017-01-28] MEDS: HYDROmorphone HCL PF 1 MG/ML VIAL IVP PRN ×2 (04:13→12:15)
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
[2017-01-28 07:54] VITALS: BP 175/75; PULSE 105; RESP 18; TEMP 98.3; O2SAT 93
[2017-01-28] MEDS ORDERED: oxyCODONE/ACETAMINOPHEN 10 MG/325 MG TAB PO PRN (08:00)
[2017-01-28] MEDS ORDERED: oxyCODONE/ACETAMINOPHEN 5 MG/325 MG TAB PO PRN (08:00)
[2017-01-28] MEDS ORDERED: DEXTROSE 50% IN WATER 50 ML VIAL(D50) IV PUSH PRN (08:30)
[2017-01-28] MEDS ORDERED: GLUCAGON 1 MG/ML VIAL OTHER PRN (08:30)
[2017-01-28] MEDS ORDERED: METOPROLOL TARTRATE 100 MG TAB PO SCH ×2 (09:00)
[2017-01-28] MEDS ORDERED: CITALOPRAM HYDROBROMIDE 20 MG TAB PO SCH (09:00)
[2017-01-28] MEDS ORDERED: LIDOCAINE HCL 5% PATCH T-DERMAL SCH (09:00)
[2017-01-28] MEDS ORDERED: FAMOTIDINE 20 MG TAB PO SCH (09:00)
[2017-01-28] MEDS: DOCUSATE SODIUM 100 MG CAP PO SCH (10:13)
[2017-01-28] MEDS: LACTATED RINGER'S 1000 ML INJ 1,000 ML IV SCH (10:14)
[2017-01-28] MEDS: METHOCARBAMOL 500 MG TAB PO SCH ×2 (10:15→15:11)
[2017-01-28 11:22] LABS: AUTOMATED NEUTROPHIL # 6.3 TH/MM3 (1.8-7.7); BASOPHIL % 0.3 % (0.0-2.0); EOSINOPHIL % 0.1 % (0.0-4.0); HEMO FLAGS DIFF FINAL; LYMPH % 7.3 % (9.0-44.0); LYMPHOCYTE # 0.5 TH/MM3 (1.0-4.8); MEAN CELL VOLUME 84.5 FL (80.0-100.0); MEAN CORPUSCULAR HEMOGLOBIN 28.2 PG (27.0-34.0); MEAN CORPUSCULAR HGB CONC 33.4 % (32.0-36.0); MONO % 3.6 % (0.0-8.0); NEUT % 88.7 % (16.0-70.0); PLATELET COUNT 153 TH/MM3 (150-450); RED BLOOD COUNT 2.49 MIL/MM3 (4.00-5.30); RED CELL DISTRIBUTION WIDTH 14.6 % (11.6-17.2); WHITE BLOOD COUNT 7.1 TH/MM3 (4.0-11.0)
[2017-01-28 11:40] LABS: BICARBONATE 23.5 MEQ/L (21.0-32.0); POTASSIUM 3.9 MEQ/L (3.5-5.1)
[2017-01-28 11:47] VITALS: BP 185/89; PULSE 93; RESP 19; TEMP 97.9; O2SAT 97
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
[2017-01-28] MEDS: INSULIN ASPART SUPPLEMENTAL SCALE SQ SCH ×2 (12:32→16:50)
--- NOTE | 2017-01-28 12:37 | EKG ---
Date Performed: 01/27/2017 Time Performed: 18:58:19 PTAGE: 56 years EKG: Sinus rhythm ST DEVIATION AND MODERATE T-WAVE ABNORMALITY, CONSIDER LATERAL ISCHEMIA ABNORMAL ECG Compared to enrike or tracing no significant change PREVIOUS TRACING : 12/06/2016 07.41 DOCTOR: Maynor Nowak Interpretating Date/Time 01/28/2017 12:31:03
[2017-01-28] MEDS ORDERED: OXYC1TAB63 PO (13:44)
[2017-01-28] MEDS ORDERED: hydrALAZINE HCL 50 MG TAB PO SCH (14:00)
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
[2017-01-28] MEDS ORDERED: ATORVASTATIN 40 MG TAB PO SCH (21:00)
[2017-01-28] MEDS ORDERED: DONEPEZIL HCL 5 MG TAB PO SCH (21:00)
[2017-01-28] MEDS ORDERED: TERAZOSIN HCL 5 MG CAP PO SCH ×2 (21:00)
[2017-01-28] MEDS ORDERED: MAGNESIUM HYDROXIDE SUSP 30 ML CUP PO SCH (21:00)
[2017-01-28] MEDS ORDERED: QUEtiapine FUMARATE 100 MG TAB PO SCH (21:00)
[2017-01-29] MEDS ORDERED: LACTULOSE SYRUP 20 GM/30 ML CUP PO SCH (09:00)
[2017-01-29] MEDS ORDERED: INFLUENZA VIRUS VACCINE (QUADRIVALENT) 0.5 ML SYR IM ONE (10:00)
[2017-01-29] MEDS ORDERED: TERAZOSIN HCL 5 MG CAP PO SCH (21:00)
== END 2017-01-28 21:44 | disposition home or self-care (01) | DRG 552 ==
LOC: NEPE 16:32 → NEDA 20:20 → N06A 21:15
PROVIDERS: ADMIT Surgery Trauma Surgery; ATTEND Surgery Trauma Surgery
DX: S32.019A Unspecified fracture of first lumbar vertebra, initial encounter for closed fracture (principal); I12.0 Hypertensive chronic kidney disease with stage 5 chronic kidney disease or end stage renal disease; I31.3 Pericardial effusion (noninflammatory); N17.9 Acute kidney failure, unspecified; N18.5 Chronic kidney disease, stage 5; E11.21 Type 2 diabetes mellitus with diabetic nephropathy; S22.31XA Fracture of one rib, right side, initial encounter for closed fracture; S32.029A Unspecified fracture of second lumbar vertebra, initial encounter for closed fracture; S32.039A Unspecified fracture of third lumbar vertebra, initial encounter for closed fracture; E11.22 Type 2 diabetes mellitus with diabetic chronic kidney disease; M06.9 Rheumatoid arthritis, unspecified; F41.9 Anxiety disorder, unspecified; I25.10 Atherosclerotic heart disease of native coronary artery without angina pectoris; D64.9 Anemia, unspecified; E78.5 Hyperlipidemia, unspecified; D35.00 Benign neoplasm of unspecified adrenal gland; F32.9 Major depressive disorder, single episode, unspecified; V43.52XA Car driver injured in collision with other type car in traffic accident, initial encounter; Y92.410 Unspecified street and highway as the place of occurrence of the external cause; Z79.4 Long term (current) use of insulin
CPT/HCPCS: 70450; 71010; 71250; 72125; 73502; 74176; 80048; 82550; 82948; 83735; 85025; 85610; 85730; 86850; 86900; 86901; 93005; 96374; 96375; J1170; J1815; J2270; J2405; J7120

== ENCOUNTER 2017-02-19 18:31 | Emergency (ER) | payer MEDICARE, MEDICAID ==
[~2017-02-19] VITALS: Ht 163.8 cm; Wt 81.0 kg
[~2017-02-19 18:31] MED LIST changes: -CLON0.3T PO; +HUMALOG SQ; +LEVEMIR SQ; +OXYC1TAB63 PO; -VERA120T3 PO
[2017-02-19 18:32] VITALS: BP 179/84; PULSE 85; RESP 18; TEMP 99.1; O2SAT 99
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
[2017-02-19 20:04] VITALS: BP 175/86; PULSE 81; RESP 20; O2SAT 99
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
[2017-02-19 20:47] LABS: AUTOMATED NEUTROPHIL # 3.3 TH/MM3 (1.8-7.7); BASOPHIL % 0.9 % (0.0-2.0); EOSINOPHIL % 0.5 % (0.0-4.0); HEMATOCRIT 21.6 % (35.0-46.0); HEMO FLAGS DIFF FINAL; MEAN CORPUSCULAR HEMOGLOBIN 27.9 PG (27.0-34.0); MEAN CORPUSCULAR HGB CONC 33.2 % (32.0-36.0); MONO % 8.6 % (0.0-8.0); PLATELET COUNT 208 TH/MM3 (150-450); RED BLOOD COUNT 2.57 MIL/MM3 (4.00-5.30); RED CELL DISTRIBUTION WIDTH 14.6 % (11.6-17.2); WHITE BLOOD COUNT 4.7 TH/MM3 (4.0-11.0)
[2017-02-19 21:08] LABS: BICARBONATE 23.8 MEQ/L (21.0-32.0)
== END 2017-02-19 21:54 | disposition home or self-care (01) ==
LOC: NEPE 18:31
DX: D64.9 Anemia, unspecified (principal); N28.9 Disorder of kidney and ureter, unspecified; E11.9 Type 2 diabetes mellitus without complications; I10 Essential (primary) hypertension; I25.10 Atherosclerotic heart disease of native coronary artery without angina pectoris; Z79.4 Long term (current) use of insulin
CPT/HCPCS: 80048; 85025; 86850; 86900; 86901; 99283